=== PATIENT | female | born 1995 | race Hispanic/Latino ===

== ENCOUNTER 2020-04-10 03:47 | Emergency (ER) | payer SELFPAY ==
[~2020-04-10] VITALS: Ht 165.1 cm; Wt 56.7 kg
[2020-04-10] MEDS ORDERED: ACETAMINOPHEN 325 MG TAB PO ONE (04:00)
--- NOTE | 2020-04-10 05:01 | Emergency Department Note ---
History of Present Illnes History of Present Illness Chief Complaint: COVID PUI History of Present Illness This is a 24 year old female . Historian: Patient Arrival Mode: Car Past Medical/Family History Physician Review I have reviewed the patient's past medical and family history. Any updates have been documented here. Past Medical History Recent Fever: Yes Clinical Suspicion of Infectio: Yes New/Unexplained Change in Ment: No Other Medical History: TADCHYCARDIA Past Surgical History: None Social History Physically hurt or threatened: No Physical Exam Related Data Triage Vital Signs Vital Signs Date Time Temp Pulse Resp B/P (MAP) Pulse Ox O2 Delivery O2 Flow Rate FiO2 04/10/20 03:50 100.8 128 16 141/99 100 Room Air Physical Exam CONSTITUTIONAL HENT EYES NECK PULMONARY CARDIOVASCULAR GASTROINTESTINAL GENITOURINARY SKIN MUSCULOSKELETAL NEUROLOGICAL PSYCHOLOGICAL Procedures 12 Lead ECG Interpretation ECG Interpretation : ECG: ECG 1 Burrer Marker Axle: Interpreted by ED physician Date: Apr 10, 2020 Time: 05:15 Rhythm: sinus tachycardia Rate: tachycardia BPM: 116 QRS axis: normal ST segments normal: Yes T waves normal: Yes Other findings: no other findings Clinical Impression: dysrhythmia - atrial (SINUS TACHYCARDIA) Assessment & Plan Medical Decision Making MDM PT WITH COVID 19 SYMPTOMS PT DISCHARGED AND PRESCRIBE A ZPAK, PT GIVEN NUMBER TO [facility] TO SCHEDULE A COVID 19 TEST, PT INSTRUCTED TO SELF QUARANTINE FOR THE NEXT 14 DAYS, PT ALSO GIVEN INSTRUCTIONS ON LAYING/SLEEPING ON SIDES OR STOMACH, NOT ON BACK. Reassessment Reassessment time: 05:07 Reassessment PT TEMP NOW 99.8, OXYGEN SATURATION 100% ON ROOM AIR, RR 17, HEART RATE 125. BP 133/97 Assessment & Plan Final Impression: (1) Suspected COVID-19 virus infection (2) Fever Depart Disposition: HOME, SELF-CARE Last Vital Signs Date Time Temp Pulse Resp B/P (MAP) Pulse Ox O2 Delivery O2 Flow Rate FiO2 04/10/20 03:50 100.8 128 16 141/99 100 Room Air Medications in the ED Acetaminophen 975 mg ONCE ONCE PO Last administered on 04/10/20at 04:03; Admin Dose 975 MG; Start 04/10/20 at 04:00; Stop 04/10/20 at 04:06; Status DC TRELL VYAS MD Apr 10, 2020 05:01
== END 2020-04-10 05:20 | disposition home or self-care (01) ==
LOC: ER 04:10
DX: R50.9 Fever, unspecified (principal)
CPT/HCPCS: 93005; 99282